=== PATIENT | male | born 1965 | race Caucasian/White ===

== ENCOUNTER 2024-09-18 21:06 | Emergency (ER) | payer OTHER, SELFPAY ==
[2024-09-18 21:10] VITALS: BP 144/88
[2024-09-18 21:32] LABS: Hematocrit 48.2 % (39.0-52.0); Hemoglobin 16.9 g/dL (13.0-18.0); Mean Corp Hgb Conc. 35.1 g/dL (33.0-37.0); Mean Corpuscular Hgb 30.2 pg (27.0-31.0); Mean Corpuscular Volume 86.1 fL (80.0-94.0); Mean Platelet Volume 8.7 fL (7.4-10.4); Platelet Count 398 10^3/uL (130-400); White Blood Cell Count 12.3 10^3/uL (4.8-10.8)
[2024-09-18 21:47] LABS: % Basophils 0.7 % (0-2); % Eosinophils 7.3 % (0-6); % Immature Granulocytes 0.4 % (0-0.5); % Lymphocytes 34.3 % (20.5-51.1); % Monocytes 7.2 % (1.7-9.3); % Neutrophils 50.1 % (42.2-75.2); ALT (SGPT) 19 U/L (0-50); AST (SGOT) 23 U/L (17-59); Absolute Basophils 0.1 10^3/uL (0-0.2); Absolute Eosinophils 0.9 10^3/uL (0-0.7); Absolute Immature Granulocytes 0.1 10^3/uL (0-0.05); Absolute Lymphocytes 4.2 10^3/uL (1.2-3.4); Absolute Monocytes 0.9 10^3/uL (0.1-0.6); Absolute Neutrophils 6.2 10^3/uL (1.4-6.5); Albumin 4.8 g/dl (3.5-5.0); Alkaline Phosphatase 97 U/L (38-126); Blood Urea Nitrogen 9 mg/dl (9-20); Calcium 9.6 mg/dl (8.4-10.2); Carbon Dioxide 31 mmol/L (22-30); Chloride 99 mmol/L (98-107); Glucose 97 mg/dl (70-99); Nucleated Red Blood Cells % 0 % (-); Potassium 4.4 mmol/L (3.5-5.1); Sodium 138 mmol/L (135-145); Total Bilirubin 0.5 mg/dl (0.2-1.3); Total Protein 7.3 g/dl (6.3-8.2); eGFR > 60.00
[2024-09-18 21:59] LABS: Troponin I < 0.012 ng/ml
--- NOTE | 2024-09-18 23:23 | ED.GENMED ---
History of Present Illness
<Anjali Evans MD, Resident - Last Filed: 09/19/24 00:49>
General
Chief Complaint: Dizziness
Time Seen by Provider: 09/18/24 22:57
History of Present Illness
History of Present Illness:
This is a 59-year-old male who presents to the ER complaining of dizziness ongoing since yesterday. Patient reports he tried standing up from his bed in the morning and experienced an episode of dizziness. Dizziness continued all day. Walking
around makes dizziness worse, sitting makes it better. He has had no episodes of loss of consciousness. He reports spinning sensation when he stands up from a sitting position. All symptoms started yesterday and has not experienced something
similar in the past. He denies nausea, vomiting, weakness, slurred speech, chest pain, shortness of breath, trauma, falls. Reports one-time episode of bilateral tremor yesterday that resolved on its own. He denies any medication use. Patient
reports his hands were moving [id number] when he was driving few weeks ago and also open yesterday. He reports he had episodes of cough and congestion this past week.
Past History
<Anjali Evans MD, Resident - Last Filed: 09/19/24 00:49>
Past History
ED Past Medical History: Other (seasonal allergies)
Social History
Tobacco: Smoker (2 packs/day)
Alcohol: Occasional
Drug: None
Review of Systems
<Anjali Evans MD, Resident - Last Filed: 09/19/24 00:49>
Review of Systems
All Other Systems: ROS reviewed and negative except as documented in HPI and ROS
Phy Exam
<Anjali Evans MD, Resident - Last Filed: 09/19/24 00:49>
General Physical Exam
General Presentation: well appearing and no apparent distress
General Mental: alert
General Hydration: appears well hydrated
ENT Exam
ENT Exam: neck supple and normocephalic
Eye Exam
Eye Exam: EOMI and other (Mild bilateral lateral gaze nystagmus)
Cardiovascular Exam
Cardiovascular Exam: regular rate/rhythm, no edema and no murmur
Pulmonary Exam
Pulmonary Exam: lungs clear and no respiratory distress
Gastrointestinal Exam
Gastrointestinal Exam: normal bowel sounds, non tender, soft and non distended
Neurological Exam
Neurological Exam: alert, oriented x3 and normal gait
Musculoskeletal Exam
Musculoskeletal Exam: full ROM, no edema and other (5/5 muscular strength bilateral upper and lower extremities)
Psychiatric Exam
Psychiatric Exam: normal mood/affect
Course
<Anjali Evans MD, Resident - Last Filed: 09/19/24 00:49>
Orders/Labs/Results
Orders:
Orders
09/18/24 21:13
Electrocardiogram (*1) Urgent
Reason for Study: Syncope
09/18/24 21:14
EKG- Treatment ONCE
09/18/24 21:15
CT Head W/o Iv Contrast Urgent
Comment:
Reason For Exam: dizziness
09/18/24 21:18
Complete Blood Count/With Diff Urgent
Comprehensive Metabolic Panel Urgent
Troponin I Urgent
09/18/24 23:21
Orthostatic VS- Treatment ONCE
09/18/24 23:39
Meclizine [Antivert] 25 mg PO NOW STA
Abnormal Lab Results
09/18/24
21:18
WBC 12.3 H 10^3/uL
(4.8-10.8)
Abs Immat Gran (auto) 0.1 H 10^3/uL
(0-0.05)
Absolute Lymphs (auto) 4.2 H 10^3/uL
(1.2-3.4)
Absolute Monos (auto) 0.9 H 10^3/uL
(0.1-0.6)
Absolute Eos (auto) 0.9 H 10^3/uL
(0-0.7)
Eosinophils % 7.3 H %
(0-6)
Carbon Dioxide 31 H mmol/L
(22-30)
09/18/24 21:18
09/18/24 21:18
Vital Signs
Initial and Last Documented VS:
Initial Vital Signs
Temp Pulse Resp BP Pulse Ox
97.7 F 92 16 144/88 97
09/18/24 21:10 09/18/24 21:10 09/18/24 21:10 09/18/24 21:10 09/18/24 21:10
Last Documented Vital Signs
Temp Pulse Resp BP Pulse Ox
97.7 F 92 16 144/88 97
09/18/24 21:10 09/18/24 21:10 09/18/24 21:10 09/18/24 21:10 09/18/24 21:10
<Lala Aleman, DO - Last Filed: 09/18/24 23:53>
Orders/Labs/Results
Orders:
Orders
09/18/24 21:13
Electrocardiogram (*1) Urgent
Reason for Study: Syncope
09/18/24 21:14
EKG- Treatment ONCE
09/18/24 21:15
CT Head W/o Iv Contrast Urgent
Comment:
Reason For Exam: dizziness
09/18/24 21:18
Complete Blood Count/With Diff Urgent
Comprehensive Metabolic Panel Urgent
Troponin I Urgent
09/18/24 23:21
Orthostatic VS- Treatment ONCE
09/18/24 23:39
Meclizine [Antivert] 25 mg PO NOW STA
Abnormal Lab Results
09/18/24
21:18
WBC 12.3 H 10^3/uL
(4.8-10.8)
Abs Immat Gran (auto) 0.1 H 10^3/uL
(0-0.05)
Absolute Lymphs (auto) 4.2 H 10^3/uL
(1.2-3.4)
Absolute Monos (auto) 0.9 H 10^3/uL
(0.1-0.6)
Absolute Eos (auto) 0.9 H 10^3/uL
(0-0.7)
Eosinophils % 7.3 H %
(0-6)
Carbon Dioxide 31 H mmol/L
(22-30)
09/18/24 21:18
09/18/24 21:18
Vital Signs
Initial and Last Documented VS:
Initial Vital Signs
Temp Pulse Resp BP Pulse Ox
97.7 F 92 16 144/88 97
09/18/24 21:10 09/18/24 21:10 09/18/24 21:10 09/18/24 21:10 09/18/24 21:10
Last Documented Vital Signs
Temp Pulse Resp BP Pulse Ox
97.7 F 92 16 144/88 97
09/18/24 21:10 09/18/24 21:10 09/18/24 21:10 09/18/24 21:10 09/18/24 21:10
<Anjali Evans MD, Resident - Last Filed: 09/19/24 00:49>
MDM/Problems Addressed
MDM/Problems Addressed:
59-year-old male presents to the ED complaining of intermittent dizziness and one-time episode of bilateral tremor. Denies nausea, denies vomiting. Well-appearing in no distress, elevated WBC at 12.3 otherwise unremarkable labs. EKG unremarkable,
BMP unremarkable, troponin negative. CT scan negative. Physical examination with mild bilateral lateral gaze nystagmus. [place] Positive on the right. Head impulse negative. Get up and go test unremarkable. Etiology likely BPPV. other
possible diagnosis include Arrhythmia vs Orthostasis although patient takes no medication. At this time, will administer oral dose of meclizine, and D/C home on as need meclizine. Will check Orthostatics. follow up with PCP
<Anjali Evans MD, Resident - Last Filed: 09/19/24 00:49>
*Critical Care Note
Total Time (30-74mins, 75-104mins- exclusive of procedures): Not Applicable
ED Attending Note
<Anjali Evans MD, Resident - Last Filed: 09/19/24 00:49>
-
Portions of this chart may have been created with voice recognition software.� Occasional wrong word or��sound alike� substitutions may have occurred due to the inherent limitations of voice recognition software.
<Lala Aleman DO - Last Filed: 09/18/24 23:53>
ED Attending Note
Patient seen and examined by attending physician: Yes
I performed a history and physical exam of patient and discussed management with resident, I reviewed resident's note and agree with documented findings and plan of care.: Yes
ED Attending Note:
This is a 59-year-old gentleman with no significant past medical history presents today with complaints of intermittent dizziness which he describes as a sense of movement, feeling off balance that began yesterday morning after getting up out of
bed. He works as a haul truck driver and admits to brief intermittent episodes of dizziness throughout the day yesterday and today and 2 episodes today, while driving where he felt like his eyes were moving back and forth rapidly. No other associated
symptoms. No headache, no nausea, no chest pain or palpitations, no diaphoresis. No history of similar episodes in the past.
He does have history of seasonal allergies and admits to intermittent nasal congestion, and few episodes of sneezing throughout the week this week but no cough no shortness of breath nor fever no chills.
He takes no medicines on a daily basis.
He smokes cigarettes. Social alcohol use. No drug use.
59-year-old gentleman appears somewhat older than stated age, bright and alert, pleasant, appears in no acute distress.
Exam remarkable for mild bilateral lateral gaze nystagmus right greater than left. Test of skew is negative. Head impulse negative. [place] positive on the right.
History and exam most consistent with benign paroxysmal positional vertigo. Other consideration is orthostasis, much less likely central vertigo, arrhythmia.
Labs thus far unremarkable save for mildly elevated white blood cell count of 12.3. Chemistries are unremarkable. Troponin is negative.
EKG is unremarkable showing normal sinus rhythm, normal intervals, normal axis.
CT of the head is unremarkable as well.
Will check orthostatic vital signs.
Overall symptoms appear quite mild, sporadic but with mildly positive [place] will give an oral dose of meclizine now.
Discussed importance of staying well-hydrated especially over the next several days.
Will plan for as needed meclizine.
Prompt follow-up with PCP for recheck.
Discharge Plan
Departure
Patient Disposition: Home (Routine Discharge)
Date of Disposition: 09/19/24
Time of Disposition: 00:14
Patient with high blood pressure during this ER visit?: Yes
Discharge Problem:
Dizziness
Instructions: Dizziness
Prescriptions:
New
meclizine 25 mg tablet
25 mg PO DAILY PRN (Reason: dizziness) Qty: 5 0RF
Referrals:
UNKNOWN - PT DOES,NOT KNOW [Family Provider] -
Interventions
Interventions:
*Risk Screen - Suicide Last Done: 09/18/24 21:10
*General Assessment Last Done: 09/18/24 21:10
*Neglect/Abuse Screening Last Done: 09/18/24 21:10
*ED COVID-19 Vaccine History Last Done: 09/18/24 21:10
Discharge Date and Time
Print Language: ITALIAN
[2024-09-18] MEDS: ANTIVERT 25 MG PO (23:46)
[2024-09-18 23:51] VITALS: BP 104/81; BP 105/73; BP 123/91; PULSE 70; PULSE 79; PULSE 80
== END 2024-09-19 00:57 | disposition home or self-care (01) ==
LOC: EMR 21:06
PROVIDERS: Student in an Organized Health Care Education/Training Program; EMERGENCY PHYSICIAN Emergency Medicine
DX: R42 Dizziness and giddiness (principal); R05.9 Cough, unspecified; R25.1 Tremor, unspecified; F17.210 Nicotine dependence, cigarettes, uncomplicated
CPT/HCPCS: 99284; 70450; 80053; 84484; 85025; 93005